=== PATIENT | male | born 1985 | race Caucasian/White ===

== ENCOUNTER 2021-08-20 05:39 | Emergency (ER) | payer MEDICAID ==
[~2021-08-20] VITALS: Ht 190.5 cm; Wt 129.7 kg
[2021-08-20] MEDS ORDERED: ZOLOFT50 M1 PO (06:05)
[2021-08-20] MEDS ORDERED: DEPAKOTE250 MG PO (06:06)
[2021-08-20] MEDS ORDERED: PERCOCET 7.5-31 EAC1 PO (06:34)
[2021-08-20 08:00] VITALS: BP 90/70
== END 2021-08-20 08:00 | disposition home or self-care (01) ==
LOC: M.ERS 05:39
DX: S82.852A Displaced trimalleolar fracture of left lower leg, initial encounter for closed fracture (principal); J45.909 Unspecified asthma, uncomplicated; Z79.899 Other long term (current) drug therapy; W00.2XXA Other fall from one level to another due to ice and snow, initial encounter; Y93.89 Activity, other specified; Y92.89 Other specified places as the place of occurrence of the external cause; Y99.8 Other external cause status